=== PATIENT | female | born 1965 | race Caucasian/White ===

== ENCOUNTER 2020-12-16 15:14 | Emergency (ER) | payer OTHER ==
--- NOTE | 2020-12-16 16:46 | EDM.PDOC ---
ED HPI GENERAL MEDICAL PROBLEM - General Chief Complaint: Flank Pain Stated Complaint: KIDNEY PAIN Time Seen by Provider: 12/16/20 16:25 Source of Information: Reports: Patient, Old Records History Limitations: Reports: No Limitations - History of Present Illness INITIAL COMMENTS - FREE TEXT/NARRATIVE: 55 yo female thinks she recently passed a kidney stone. Since then has been continuing to have L flank pain that is constant and getting worse. No fever. No dysuria. Took acetaminophen before coming to the ER. Here with her . Onset: Gradual Onset Date: 12/14/20 Duration: Getting Worse Location: Reports: Back (L flank) Quality: Reports: Ache Severity: Moderate Improves with: Reports: Medication Worsens with: Reports: Other (time) Context: Reports: Other (See HPI) Associated Symptoms: Reports: Nausea/Vomiting (no vomiting), Other (abdominal pain). 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 Left Flank Pain Score (Numeric/FACES): 6 - Related Data Allergies Allergy/AdvReac Type Severity Reaction Status Date / Time Sulfa (Sulfonamide Allergy Hives Verified 12/16/20 16:01 Antibiotics) Home Meds: Home Meds Acetaminophen/oxyCODONE [Percocet 325-5 MG] 1 each PO Q4H PRN #14 tab 12/16/20 [Rx] Ciprofloxacin [Cipro] 250 mg PO Q12H #12 ml 12/16/20 [Rx] Empagliflozin/Metformin HCl [Synjardy 5-500 mg Tablet] 1 tab PO BID 12/16/20 [History] Levothyroxine 125 mcg PO ACBREAKFAST 12/16/20 [History] Omeprazole 20 mg PO BIDAC 12/16/20 [History] Potassium Citrate [Potassium Citrate ER] 15 meq PO TID 12/16/20 [History] aMILoride/Hydrochlorothiazide [Amiloride-HCTZ 5-50 MG] 1 tab PO DAILY 12/16/20 [History] allopurinoL [Zyloprim] 100 mg PO DAILY 12/16/20 [History] estradioL [Estradiol] 1 mg PO DAILY 12/16/20 [History] Past Medical History Musculoskeletal History: Reports: Fracture Endocrine/Metabolic History: Reports: Diabetes, Type II, Hypothyroidism - Past Surgical History GI Surgical History: Reports: Appendectomy Female Surgical History: Reports: Hysterectomy, Kidney stone extraction, Lithotripsy/ESWL, Oophorectomy Social & Family History - Tobacco Use Tobacco Use Status *Q: Never Tobacco User - Caffeine Use Caffeine Use: Reports: Soda ED ROS GENERAL - Review of Systems Review Of Systems: See Below Constitutional: Reports: No Symptoms HEENT: Reports: No Symptoms Respiratory: Reports: No Symptoms Cardiovascular: Reports: No Symptoms GI/Abdominal: Reports: Abdominal Pain, Nausea. Denies: Constipation, Diarrhea, Distension, Hematemesis, Hematochezia, Melena, Vomiting : Reports: Flank Pain (left) Musculoskeletal: Reports: No Symptoms Skin: Reports: No Symptoms Neurological: Reports: No Symptoms ED EXAM, RENAL/ - Physical Exam Exam: See Below Exam Limited By: No Limitations General Appearance: Alert, WD/WN, No Apparent Distress, Obese Eye Exam: Bilateral Eye: Normal Inspection Ears: Normal External Exam, Normal Canal, Hearing Grossly Normal Nose: Normal Inspection, No Blood Throat/Mouth: Normal Inspection, Normal Lips, Normal Oropharynx, Normal Voice, No Airway Compromise Head: Atraumatic, Normocephalic Neck: Normal Inspection Respiratory/Chest: No Respiratory Distress, Lungs Clear, Normal Breath Sounds, No Accessory Muscle Use Cardiovascular: Regular Rate, Rhythm, No Edema GI/Abdominal: Normal Bowel Sounds, Soft, Tender (diffuse). No: Non-Tender, No Distention, Distended, Guarding, Rigid, Rebound Back Exam: Normal Inspection. No: CVA Tenderness (R), CVA Tenderness (L) Extremities: Normal Inspection, Normal Range of Motion, Non-Tender, No Pedal Edema Neurological: Alert, Oriented, CN II-XII Intact, Normal Cognition, No Motor/Sensory Deficits Psychiatric: Normal Affect, Normal Mood Skin Exam: Warm, Dry, Intact, Normal Color, No Rash Course - Vital Signs Last Recorded V/S: Last Vital Signs Temp 36.5 C 12/16/20 16:50 Pulse 86 12/16/20 16:05 Resp 16 12/16/20 16:05 BP 154/73 H 12/16/20 16:05 Pulse Ox 93 L 12/16/20 16:05 - Orders/Labs/Meds Orders: Active Orders 24 hr Category Date Time Status CULTURE URINE [RM] Stat Lab 12/16/20 16:37 Received Labs: Laboratory Tests 12/16/20 12/16/20 12/16/20 Range/Units 15:50 16:27 16:27 WBC 8.8 (4.5-11.0) K/uL RBC 4.70 (3.30-5.50) M/uL Hgb 14.4 (12.0-15.0) g/dL Hct 43.7 (36.0-48.0) % MCV 93 (80-98) fL MCH 31 (27-31) pg MCHC 33 (32-36) % Plt Count 191 (150-400) K/uL Sodium 139 L (140-148) mmol/L Potassium 4.3 (3.6-5.2) mmol/L Chloride 102 (100-108) mmol/L Carbon Dioxide 27 (21-32) mmol/L Anion Gap 14.3 H (5.0-14.0) mmol/L BUN 21 H (7-18) mg/dL Creatinine 1.3 H (0.6-1.0) mg/dL Est Cr Clr Drug Dosing 48.74 mL/min Estimated GFR (MDRD) 42 L (>60) Glucose 112 H (74-106) mg/dL Calcium 9.3 (8.5-10.1) mg/dL C-Reactive Protein (0.0-0.3) mg/dL Urine Color Yellow (YELLOW) Urine Appearance Cloudy A (CLEAR) Urine pH 7.5 (5.0-8.0) Ur Specific [place] 1.020 (1.008-1.030) Urine Protein Negative (NEGATIVE) mg/dL Urine Glucose (UA) >=1000 H (NEGATIVE) mg/dL Urine Ketones Trace H (NEGATIVE) mg/dL Urine Occult Blood Trace-intact H (NEGATIVE) Urine Nitrite Negative (NEGATIVE) Urine Bilirubin Negative (NEGATIVE) Urine Urobilinogen 0.2 (0.2-1.0) EU/dL Ur Leukocyte Esterase Small H (NEGATIVE) Urine RBC 0-5 (0-5) Urine WBC 20-30 H (0-5) Ur Epithelial Cells Moderate Amorphous Sediment Rare Urine Bacteria Moderate Urine Mucus Not seen 12/16/20 Range/Units 16:27 WBC (4.5-11.0) K/uL RBC (3.30-5.50) M/uL Hgb (12.0-15.0) g/dL Hct (36.0-48.0) % MCV (80-98) fL MCH (27-31) pg MCHC (32-36) % Plt Count (150-400) K/uL Sodium (140-148) mmol/L Potassium (3.6-5.2) mmol/L Chloride (100-108) mmol/L Carbon Dioxide (21-32) mmol/L Anion Gap (5.0-14.0) mmol/L BUN (7-18) mg/dL Creatinine (0.6-1.0) mg/dL Est Cr Clr Drug Dosing mL/min Estimated GFR (MDRD) (>60) Glucose (74-106) mg/dL Calcium (8.5-10.1) mg/dL C-Reactive Protein 1.11 H (0.0-0.3) mg/dL Urine Color (YELLOW) Urine Appearance (CLEAR) Urine pH (5.0-8.0) Ur Specific [place] (1.008-1.030) Urine Protein (NEGATIVE) mg/dL Urine Glucose (UA) (NEGATIVE) mg/dL Urine Ketones (NEGATIVE) mg/dL Urine Occult Blood (NEGATIVE) Urine Nitrite (NEGATIVE) Urine Bilirubin (NEGATIVE) Urine Urobilinogen (0.2-1.0) EU/dL Ur Leukocyte Esterase (NEGATIVE) Urine RBC (0-5) Urine WBC (0-5) Ur Epithelial Cells Amorphous Sediment Urine Bacteria Urine Mucus Meds: Medications Discontinued Medications Generic Name Dose Route Start Last Admin Trade Name Freq PRN Reason Stop Dose Admin Ciprofloxacin 500 mg 12/16/20 16:57 Ciprofloxacin 500 Mg Tab PO 12/16/20 16:58 ONETIME ONE Oxycodone/Acetaminophen 1 tab 12/16/20 16:57 Acetaminophen/Oxycodone 325-5 Mg Tab PO 12/16/20 16:58 ONETIME STA Departure - Departure Time of Disposition: 17:05 Disposition: Home, Self-Care 01 Condition: Fair Clinical Impression: UTI (urinary tract infection) Qualifiers: Urinary tract infection type: site unspecified Hematuria presence: without hematuria Qualified Code(s): N39.0 - Urinary tract infection, site not specified - Discharge Information *PRESCRIPTION DRUG MONITORING PROGRAM REVIEWED*: Yes *COPY OF PRESCRIPTION DRUG MONITORING REPORT IN PATIENT MELANIA: Yes Prescriptions: Ciprofloxacin [Cipro] 250 mg PO Q12H #12 ml Acetaminophen/oxyCODONE [Percocet 325-5 MG] 1 each PO Q4H PRN #14 tab PRN Reason: Pain Referrals: PCP,None [Primary Care Provider] - Forms: ED Department Discharge Additional Instructions: Drink ample fluids. Take Ciprofloxacin every 12 hrs. Take ibuprofen and either acetaminophen OR Percocet for pain releif. Recheck with your doctor in 3 days, return if worse in the interim. Sepsis Event Note (ED) - Evaluation Sepsis Screening Result: No Definite Risk - Focused Exam Vital Signs: Vital Signs Temp Pulse Resp BP Pulse Ox 12/16/20 16:50 36.5 C 12/16/20 16:05 36.4 C 86 16 154/73 H 93 L 12/16/20 15:42 36.4 C 86 16 154/73 H 93 L - My Orders Last 24 Hours: My Active Orders 12/16/20 16:37 CULTURE URINE [RM] Stat - Assessment/Plan Last 24 Hours: My Active Orders 12/16/20 16:37 CULTURE URINE [RM] Stat
[2020-12-16] MEDS ORDERED: Ciprofloxacin 500 MG Tab PO ONE (16:57)
[2020-12-16] MEDS ORDERED: Acetaminophen/oxyCODONE 325-5 MG Tab PO STA (16:57)
--- NOTE | 2020-12-16 18:11 | CRLCT ---
For Patients: As a result of the Century Cures Act, medical imaging exams and procedure reports are released immediately into your electronic medical record. You may view this report before your referring provider. If you have questions, please contact your health care provider. Indication: Left flank pain Technique: A CT volumetric acquisition was performed of the abdomen and pelvis without IV contrast. Comparison: None available Findings: The lung bases are clear. The unenhanced liver and spleen demonstrate normal size and uniform density. There is no evidence of inflammation within the pancreas. Small stones are noted within a noninflamed gallbladder. There is no evidence bile duct dilatation. The adrenal glands appear normal. Stones are identified within both kidneys. There is edema and hydronephrosis of the left kidney and the dilated left ureter can be followed to the mid abdomen where there is a 5 mm stone on image 122 within the mid left ureter at the level of L3. Beyond this point the distal left ureter appears normal. The appendix is visualized and appears normal within the right lower quadrant. No abnormalities are identified within the small intestine or colon. The patient is status post hysterectomy. The urinary bladder appears normal. Impression: Nephrolithiasis and obstructing 5 mm calculus within the mid left ureter. Dictated by Chon Sawant MD @ 12/16/2020 6:09:20 PM Please note that all CT scans at this facility use dose modulation, iterative reconstruction, and/or weight-based dosing when appropriate to reduce radiation dose to as low as reasonably achievable. Dictated by: Chon Sawant MD @ 12/16/2020 18:09:25 (Electronically Signed)
[2020-12-16] MEDS ORDERED: Ondansetron 4 MG/2 ML SDV IVPUSH ONE (18:43)
[2020-12-16] MEDS ORDERED: HYDROmorphone 1 MG/ML Syringe IVPUSH ONE (18:43)
[2020-12-16] MEDS ORDERED: cefTRIAXone 1 GM in Sodium Chloride 0.9% 50 ML IV ONE (18:43)
[2020-12-16] MEDS ORDERED: Ketorolac 30 MG/ML SDV IVPUSH ONE (18:44)
== END 2020-12-16 20:15 | disposition home or self-care (01) ==
LOC: JP.ED 15:14
DX: N39.0 Urinary tract infection, site not specified (principal); E11.9 Type 2 diabetes mellitus without complications; E03.9 Hypothyroidism, unspecified; Z88.2 Allergy status to sulfonamides; Z79.899 Other long term (current) drug therapy; Z20.822 Contact with and (suspected) exposure to COVID-19
CPT/HCPCS: 36415; 74176; 80048; 81001; 85027; 86140; 87086; 87088; 87186; 87635; 96365; 96375; 99285; A9270; J0696; J1170; J1885; J2405; U0002